=== PATIENT | female | born 1995 | race Caucasian/White ===

== ENCOUNTER 2024-04-23 09:37 | Outpatient (CLI) | payer OTHER ==
[2024-04-23] MEDS ORDERED: Iopamidol 30 ML ONE (09:54)
== END 2024-04-23 09:38 | disposition home or self-care (01) ==
LOC: RAD 09:37
PROVIDERS: ATTEND Obstetrics & Gynecology
DX: Z31.41 Encounter for fertility testing (principal)
CPT/HCPCS: 58340; 74740; Q9967